=== PATIENT | female | born 2000 | race Two or more races ===

== ENCOUNTER 2024-03-27 11:56 | Emergency (ER) | payer OTHER ==
[~2024-03-27] VITALS: Ht 167.6 cm; Wt 78.0 kg
[2024-03-27 12:02] VITALS: O2SAT 99
[2024-03-27] MEDS ORDERED: SODIUM CHLORIDE 0.9% 1,000 ML IV SCH (12:30)
[2024-03-27 12:51] LABS: BASOPHILS % 0.3 % (0.0-2.0); EOSINOPHILS % 1.5 % (0.0-5.0); HEMATOCRIT. 40.3 % (36.0-48.0); HEMOGLOBIN. 13.9 g/dL (12.0-16.0); LYMPHOCYTES % 20.2 % (20.0-50.0); MEAN CORPUSCULAR HEMOGLOBIN 30.2 pg (28.0-32.0); MEAN CORPUSCULAR HGB CONC 34.6 g/dL (31.0-37.0); MEAN CORPUSCULAR VOLUME 87.3 fL (81.0-99.0); MEAN PLATELET VOLUME 9.9 fl (7.4-10.4); MONOCYTES % 3.3 % (2.0-8.0); NEUTROPHILS % 74.7 % (40.0-76.0); PLATELET 217 x1000/uL (130-400); RED BLOOD CELL COUNT 4.62 mill/uL (4.2-5.4); RED CELL DISTRIBUTION WIDTH 12.7 % (11.6-14.6); WHITE BLOOD COUNT 9.3 x1000/uL (4.5-11.0)
[2024-03-27 12:55] LABS: CHLORIDE 106 mEq/L (98-107); POTASSIUM 3.3 mEq/L (3.5-5.1); SODIUM 138 mEq/L (136-145)
[2024-03-27 12:56] LABS: CARBON DIOXIDE 25 mEq/L (21-32)
[2024-03-27 12:57] LABS: CALCIUM 9.7 mg/dL (8.7-10.4)
[2024-03-27 13:01] LABS: CREATININE 0.7 mg/dL (0.6-1.0)
[2024-03-27] MEDS: METHYLPREDNISOLONE SOD SUCC 125MG/2ML (ACT-O-VIAL) IV ONE (13:01)
[2024-03-27] MEDS: FAMOTIDINE 20MG/2ML VIAL IV ONE (13:01)
[2024-03-27] MEDS: DIPHENHYDRAMINE 50MG/ML VIAL IV ONE (13:01)
[2024-03-27 13:02] LABS: GLUCOSE 137 mg/dL (70-105); UREA NITROGEN BLOOD 8 mg/dL (9-23)
[2024-03-27 13:15] LABS: HCG SCREEN NEGATIVE
[2024-03-27] MEDS: POTASSIUM CHLORIDE 20MEQ TABLET SR PO ONE (14:40)
[2024-03-27] MEDS ORDERED: P20 MT (15:12)
[2024-03-27] MEDS ORDERED: EPIN0.3P3 IM (15:12)
[2024-03-27] MEDS ORDERED: DIPH25CA83 MT (15:13)
[2024-03-27] MEDS ORDERED: FAMO-135 MT (15:13)
[2024-03-27 15:33] VITALS: BP 114/55; PULSE 101; RESP 18; TEMP 97.8
== END 2024-03-27 15:41 | disposition home or self-care (01) ==
LOC: ER 11:56
DX: T78.2XXA Anaphylactic shock, unspecified, initial encounter (principal); E87.6 Hypokalemia; X58.XXXA Exposure to other specified factors, initial encounter
CPT/HCPCS: 80048; 84703; 85025; 36415; 96374; 96375; 99284; J1200; J3490; J2930; Z7610; J2919